=== PATIENT | male | born 1960 | race Hispanic/Latino ===

== ENCOUNTER 2018-06-04 18:07 | Inpatient (IN) | payer SELFPAY ==
[~2018-06-04] VITALS: Ht 160 cm; Wt 77.1 kg
[2018-06-04] VITALS (7 sets, daily range): BP systolic 102–111; BP diastolic 71–84
[2018-06-04] MEDS ORDERED: ASPIRIN 81 MG CHEW TAB PO ONE ×2 (18:30→18:45)
[2018-06-04] MEDS ORDERED: METOPROLOL TARTRATE INJ 1 MG/ML VIAL IV NR ×2 (18:30)
[2018-06-04] MEDS ORDERED: AMIODARONE HCL 150MG 100 ML ONE (18:41)
[2018-06-04] MEDS: ENOXAPARIN SODIUM INJ 100 MG/ML SYR SC SCH (18:42)
[2018-06-04] MEDS ORDERED: AMIODARONE HCL 150 MG/100 ML BAG IV ONE (18:45)
[2018-06-04] MEDS ORDERED: AMIODARONE HCL 900 MG in DEXTROSE 5% 500ML 500 ML IV SCH (18:45)
[2018-06-04 18:55] LABS: BASOPHILS # (AUTO) 0.1 (0.0-0.1); BASOPHILS % 0.8 % (0.0-1.0); EOSINOPHILS # (AUTO) 0.2 (0.0-0.4); EOSINOPHILS % 2.2 % (0.0-6.0); HEMATOCRIT 40.2 % (38.2-49.6); HEMOGLOBIN 13.8 g/dL (14.0-18.0); LYMPHOCYTES # (AUTO) 3.1 (1.0-3.2); LYMPHOCYTES % 31.1 % (18.0-39.1); MEAN CORPUSCULAR HEMOGLOBIN 31.1 pg (28-32); MEAN CORPUSCULAR HGB CONC 34.3 g/dL (31-35); MEAN CORPUSCULAR VOLUME 90.5 fL (81-99); MONOCYTES % 10.1 % (4.4-11.3); NEUTROPHILS # (AUTO) 5.5 (2.1-6.9); NEUTROPHILS % 55.5 % (38.7-80.0); PLATELET COUNT 252 x10e3/uL (140-360); RED BLOOD COUNT 4.44 x10e6/uL (4.3-5.7); RED CELL DISTRIBUTION WIDTH 13.4 % (11.7-14.4)
[2018-06-04] MEDS ORDERED: AMIODARONE HCL 900 MG in DEXTROSE 5 % 500ML BOTTLE 500 ML IV ONE (19:00)
[2018-06-04] MEDS ORDERED: AMIODARONE HCL 900 MG in DEXTROSE 5 % 500ML BOTTLE 500 ML IV SCH (19:00)
[2018-06-04 19:02] LABS: INR 0.96; PROTHROMBIN TIME 13.7 seconds (11.9-14.5)
[2018-06-04 19:03] LABS: PARTIAL THROMBOPLASTIN TIME 26.8 seconds (23.8-35.5)
[2018-06-04 19:11] LABS: ALANINE AMINOTRANSFERASE 15 IU/L (0-55); ALBUMIN 3.8 g/dL (3.5-5.0); ALBUMIN/GLOBULIN RATIO 1.2 (0.8-2.0); ALKALINE PHOSPHATASE 49 IU/L (40-150); ANION GAP 12.8 mmol/L (8-16); BLOOD UREA NITROGEN 18 mg/dL (7-26); BUN/CREATININE RATIO 19 (6-25); CALCIUM 8.9 mg/dL (8.4-10.2); CARBON DIOXIDE 25 mmol/L (22-29); CHLORIDE 104 mmol/L (98-107); CREATINE KINASE 70 IU/L (30-200); CREATININE, SERUM 0.97 mg/dL (0.72-1.25); EST GLOMERULAR FILTRATION RATE > 60 ML/MIN (60-); GLUCOSE 94 mg/dL (74-118); MAGNESIUM 2.4 MG/DL (1.3-2.1); POTASSIUM 4.8 mmol/L (3.5-5.1); SODIUM 137 mmol/L (136-145)
[2018-06-04 19:28] LABS: FREE THYROXINE INDEX 2.1487 (1.4-3.8); THYROID STIMULATING HORMONE 4.384 uIU/mL (0.350-4.940)
--- NOTE | 2018-06-04 19:42 | Diagnostic Imaging Report ---
EXAMINATION: CHEST SINGLE (PORTABLE) INDICATION: ^chest pain, sob, dizzy COMPARISON: None FINDINGS: AP view TUBES and LINES: None. LUNGS: Lungs are well inflated. Lungs are clear. There is no evidence of pneumonia or pulmonary edema. PLEURA: No pleural effusion or pneumothorax. HEART AND MEDIASTINUM: The cardiomediastinal silhouette is unremarkable. BONES AND SOFT TISSUES: No acute osseous lesion. Soft tissues are unremarkable. UPPER ABDOMEN: No free air under the diaphragm. IMPRESSION: No acute thoracic abnormality. Signed by: Dr. Francis Reyes M.D. on 06/04/2018 7:38 PM
--- NOTE | 2018-06-04 20:14 | Consultation ---
DATE OF CONSULTATION: REQUESTING PHYSICIAN: Dr. Sood REASON FOR CONSULT: Atrial fibrillation. HISTORY OF PRESENTING ILLNESS: Mr. De La Garza is a 58-year-old gentleman with past medical history as listed below, reportedly drank a strong cup of coffee this morning and then felt as his heart was doing some weird things. He states he felt like skipped beats and rapid heartbeat, which continued to persist and so he decided to come to the emergency room. Has not had this feeling in the past. Denies any chest pain, shortness of breath, or palpitations. Patient was noted to be in atrial fibrillation. His heart rate was fluctuating between the 80s to the 140s. He was started on Cardizem drip and his heart rate slowed down to the 70s. Patient has no known history of atrial fibrillation. REVIEW OF SYMPTOMS: CONSTITUTIONAL: Has some fatigue and weakness. HEENT: No headache, blurring of vision, seizures, or syncope. CARDIOVASCULAR: No chest pain, dyspnea, orthopnea, PND. Has palpitations. RESPIRATORY: No cough, fever, expectoration. GI: No abdominal pain, vomiting, diarrhea. : No dysuria, frequency, incontinence. ALLERGIES: NO KNOWN DRUG ALLERGIES. MEDICATIONS: See list. PAST MEDICAL HISTORY: No significant past medical history. SOCIAL HISTORY: Does not smoke or drink. Drinks 2 cups of coffee every day. FAMILY HISTORY: There is no family history of CAD or arrhythmias. PHYSICAL EXAMINATION: GENERAL: Moderately-built and nourished gentleman, awake, alert, not in any obvious distress. VITAL SIGNS: Heart rate is in the 70s on the monitor, blood pressure 175/85, respiratory rate is 20. HEENT: Atraumatic. NECK: No JVD, bruit, thyromegaly, or lymphadenopathy. CARDIOVASCULAR: First and second heart sounds heard. No murmurs, rubs, or gallops appreciated. CHEST: Clear to auscultation. ABDOMEN: Soft, nontender. EXTREMITIES: No edema. LABS: WBC is 9.8, hemoglobin is 13.8, hematocrit is 40.2, platelets are 252,000. Electrolytes are pending. INR is pending. EKG shows atrial fibrillation at 133 beats per minute, normal axis, normal intervals, nonspecific ST-T changes. IMPRESSION: Atrial fibrillation with rapid ventricular rate, new onset. PLAN: 1. The patient has been started on amiodarone drip. His heart rate is under better control. 2. He is on Lovenox and metoprolol p.r.n., can continue the same. 3. Get echocardiogram to assess LV function and valvular function. 4. Check thyroid function test. 5. It sounds like patient is low on atrial fibrillation. Continue with aspirin for now. 6. Further cardiac workup depending on clinical course. 7. Discussed my impression and plan of management with the patient and the family. They understand it. As always, I appreciate and thank you very much for your referrals. Job#: [id number]
--- NOTE | 2018-06-04 21:00 | NUR ---
RECEIVED FROM ER VIA STRETCHER, AMBULATED TO REST ROOM WITHOUT DIFFICULTY. AMIODARONE INFUSING AT 1 MG/MIN VIA PUMP, PER REPORT DUE TO DECREASE TO 0.5 MG/MIN AT 0100
[2018-06-05] VITALS (19 sets, daily range): BP systolic 82–109; BP diastolic 65–86
--- NOTE | 2018-06-05 01:00 | NUR ---
AMIODARONE DRIP DECREASED TO 0.5 MG/MIN, PATIENT REMAINS IN A-FIB BUT RATE NOW 90-110.
--- NOTE | 2018-06-05 02:28 | History and Physical ---
This is a patient, who comes in with chest pain. HISTORY OF PRESENT ILLNESS: This is Mr. Gareth De La Garza, who was born on 1960, who was initially until day of admission, the patient woke up in the morning and had 2 sips of coffee and noticed that he had palpitations. The patient's palpitations got out of control. The patient and the patient was discharged to home saying it was just blood pressure. The patient came here again with continuous palpitation and shortness of breath, and also chest pain and was found to have atrial fibrillation and was admitted for the same. PAST MEDICAL HISTORY: Noncontributory. He has been healthy. MEDICATIONS: No medications taken. PAST SURGICAL HISTORY: Noncontributory. No surgeries. SOCIAL HISTORY: No EtOH. No history of smoking and no history of IV drug abuse. Lives with his . REVIEW OF SYSTEMS: Positive for chest pain. Positive for shortness of breath. No nausea, vomiting, or diarrhea. No constipation. No rectal bleeding. No hematochezia. No hematemesis. No blurry vision. No diplopia. No headaches, and no weight loss or weight gain in the recent past. PHYSICAL EXAMINATION: GENERAL: On examination, the patient is alert and oriented x3. He is tachycardic, in atrial fibrillation. VITAL SIGNS: The patient's heart rate is about 140. HEENT: Normocephalic, atraumatic. Pupils are reactive to light and accommodation. CVS: S1 and S2 irregularly irregular. ABDOMEN: Nontender and nondistended. EXTREMITIES: No clubbing, no cyanosis, and no edema. ASSESSMENT: Atrial fibrillation with rapid ventricular response. The patient will be anticoagulated with Lovenox 1 mg/kg twice a day. We will also start the patient on amiodarone drip, 1 dose of IV metoprolol 2.5 mg has been given. The patient's rate is controlled at this time, continues to be in atrial fibrillation. Further recommendation and clinical course, we will keep the patient in the ICU with amiodarone drip and continue. Echocardiogram has been ordered. Cardiac enzymes have been ordered. Thyroid panel will be ordered, and also PT/PTT and PT/INR will be ordered too. Further recommendation and clinical course, we will continue to monitor the patient along with database reporting consultant, . . MD ELAN WorkmanJ/MODL /[id number]
[2018-06-05 05:03] LABS: BASOPHILS # (AUTO) 0.1 (0.0-0.1); BASOPHILS % 0.7 % (0.0-1.0); EOSINOPHILS # (AUTO) 0.2 (0.0-0.4); EOSINOPHILS % 2.8 % (0.0-6.0); HEMATOCRIT 39.7 % (38.2-49.6); HEMOGLOBIN 12.9 g/dL (14.0-18.0); LYMPHOCYTES # (AUTO) 2.9 (1.0-3.2); LYMPHOCYTES % 35.5 % (18.0-39.1); MEAN CORPUSCULAR HEMOGLOBIN 30.2 pg (28-32); MEAN CORPUSCULAR HGB CONC 32.5 g/dL (31-35); MONOCYTES # (AUTO) 0.8 (0.2-0.8); MONOCYTES % 9.2 % (4.4-11.3); NEUTROPHILS # (AUTO) 4.2 (2.1-6.9); NEUTROPHILS % 51.6 % (38.7-80.0); PLATELET COUNT 228 x10e3/uL (140-360); RED BLOOD COUNT 4.27 x10e6/uL (4.3-5.7); RED CELL DISTRIBUTION WIDTH 13.4 % (11.7-14.4)
[2018-06-05 05:30] LABS: CREATINE KINASE 54 IU/L (30-200)
[2018-06-05 05:34] LABS: ANION GAP 13.6 mmol/L (8-16); BLOOD UREA NITROGEN 14 mg/dL (7-26); BUN/CREATININE RATIO 14 (6-25); CALCIUM 8.7 mg/dL (8.4-10.2); CARBON DIOXIDE 24 mmol/L (22-29); CHLORIDE 104 mmol/L (98-107); EST GLOMERULAR FILTRATION RATE > 60 ML/MIN (60-); GLUCOSE 103 mg/dL (74-118); POTASSIUM 4.6 mmol/L (3.5-5.1); SODIUM 137 mmol/L (136-145)
[2018-06-05 05:58] LABS: CHOL/HDL RATIO 3.7 (3.9-4.7); MAGNESIUM 2.1 MG/DL (1.3-2.1)
[2018-06-05] MEDS: ENOXAPARIN SODIUM INJ 100 MG/ML SYR SC SCH (06:37)
[2018-06-05] MEDS: METOPROLOL TARTRATE 25 MG TAB PO SCH ×3 (08:45→18:00)
[2018-06-05] MEDS ORDERED: ASPIRIN 325 MG TAB PO SCH (09:00)
[2018-06-05] MEDS ORDERED: AMIODARONE HCL 200 MG TAB PO SCH (09:45)
[2018-06-05] MEDS: DIGOXIN INJ 0.25 MG/ML 2 ML AMP IV SCH ×2 (10:32→16:00)
--- NOTE | 2018-06-05 10:57 | NUR ---
pt converted to NSR. will continue to monitor
[2018-06-05 12:02] LABS: CREATINE KINASE MB 0.9 ng/mL (0-5.0)
--- NOTE | 2018-06-05 18:10 | NUR ---
RECD PT FROM ICU VIA W/C AAOX3,TELE IN PLACE SR 60,DENIES PAIN
[2018-06-05] MEDS ORDERED: ENOXAPARIN INJ 80 MG/0.8 ML SYR SC SCH (18:30)
[2018-06-05] MEDS ORDERED: ASPIRIN325 MG PO (18:37)
[2018-06-05] MEDS ORDERED: DIGOXIN125 MCG PO (18:37)
--- NOTE | 2018-06-05 19:00 | NUR ---
PT DISCHARGED ,IV DCD WITHOUT REDNESS OR SWELIING,PRESCRIPTIONS AND INSTRUCTIONS GIVEN COPY ON CHART,TRANSPORTED TO [facility] W/C
--- NOTE | 2018-06-05 23:11 | Progress Note ---
DATE: SUBJECTIVE: The patient came in yesterday with atrial fibrillation with rapid ventricular response, amiodarone drip was started. The patient is on digoxin 0.125 mg, one dose has been given and also has been given metoprolol tartrate 25 mg. The patient was on anticoagulation 70 mg of Lovenox. Currently, the patient has converted back to normal sinus rhythm. Asymptomatic. No complaints. Discussed case with cardiology. The patient is willing to be discharged and will be discharged on digoxin and aspirin 325 mg. OBJECTIVE: GENERAL: On examination, the patient is alert and oriented x3. No complaints. VITAL SIGNS: Temperature is afebrile, pulse is about 59, and blood pressure is 90/73. HEENT: Normocephalic and atraumatic. Pupils are reactive to light and accommodation. CVS: S1 and S2. Regular rate and rhythm. ABDOMEN: Nontender and nondistended. EXTREMITIES: No clubbing. No cyanosis. No edema. ASSESSMENT: Atrial fibrillation, converted back to normal sinus rhythm. PLAN: Plan is to put the patient on digoxin 0.125, will be seen by in about a week's time. The patient is also started on aspirin 325 mg once a day every day blood pressure being hypertensive. Further recommendation on clinical course. His echocardiogram shows an EF of 40%, which can be worked up as an outpatient basis. We will continue to monitor the patient as an outpatient and will be seeing the patient in about a week's time. Strict ER warnings had been given to the patient, and caffeine withdrawal and caffeine cessation has been advised to the patient. MD ELAN WorkmanJ/MODL /[id number]
[2018-06-06] MEDS ORDERED: DIGOXIN 0.25 MG TAB PO SCH (09:00)
== END 2018-06-05 18:49 | disposition home or self-care (01) | DRG 310 ==
LOC: ER 18:07 → ERHOLD 18:37 → ICU 21:17 → MED/SURG3 06-05 18:25
PROVIDERS: ADMIT Family Medicine; ATTEND Family Medicine
DX: I48.91 Unspecified atrial fibrillation (principal); Z79.82 Long term (current) use of aspirin
CPT/HCPCS: 36415; 71045; 80048; 80053; 80061; 82550; 82553; 83735; 84100; 84436; 84443; 84479; 84484; 85025; 85610; 85730; 93005; 93306; 99284; J1160; J1650